=== PATIENT | female | born 2000 | race Caucasian/White ===

== ENCOUNTER 2020-06-08 10:33 | Outpatient (CLI) | payer OTHER, SELFPAY ==
--- NOTE | ~2020-06-08 | US_ITS ---
EXAMINATION: US OB <= 14 weeks fetus DATE: 06/08/2020 11:09 INDICATION: First trimester dating TECHNIQUE: Real-time pelvic transabdominal and transvaginal ultrasound was performed. COMPARISON: None. FINDINGS: The uterus measures 8.5 x 5.3 x 7.1 cm. There is an intrauterine gestational sac. A yolk s ac is identified. heart motion is identified measuring 173 beats per minute (bpm) by M-mode Dop pler. The crown rump length measures 1.9 cm , which correlates with an estimated gestational ag e of 8 weeks and 3 day(s) (+/-) 4 day(s). The left ovary is not visualized however no left adnexal abnormality is seen. The right ovary measure s 4.3 x 2.9 x 1.8 cm. There is normal vascular flow in the right ovary. There is no free fluid in the pelvis. IMPRESSION: 1. Live intrauterine with an estimated gestational age of 8 weeks and 3 day(s) (+/-) 4 day( s) and an estimated delivery date of 01/15/2021. Reviewed, dictated and finalized at location A. E STUDIES FACULTY MEMBER IMPRESSION: 1. Live intrauterine with an estimated gestational age of 8 weeks and 3 day(s) (+/-) 4 day(s) and an estimated delivery date of 01/15/2021.
== END 2020-06-08 10:34 | disposition home or self-care (01) ==
LOC: ANHIMG 10:38
PROVIDERS: Visit Provider Obstetrics & Gynecology
DX: Z34.91 Encounter for supervision of normal pregnancy, unspecified, first trimester (principal); Z3A.08 8 weeks gestation of pregnancy
CPT/HCPCS: 76801

== ENCOUNTER 2020-07-03 09:36 | Outpatient (CLI) | payer OTHER, SELFPAY ==
--- NOTE | ~2020-07-03 | US_ITS ---
EXAMINATION: US OB <=14 wk fetus w TV DATE: 07/03/2020 10:10 INDICATION: First trimester viability assessment TECHNIQUE: Real-time pelvic transabdominal and transvaginal ultrasound was performed. COMPARISON: None. FINDINGS: The uterus measures 11.3 x 7.0 x 9.1 cm. There is an intrauterine gestational sac. h eart motion is identified measuring 167 beats per minute (bpm) by M-mode Doppler. The crown rum p length measures 5.5 cm , which correlates with an estimated gestational age of 12 weeks and 1 day(s ) (+/-) 8 day(s). The right ovary measures 2.7 x 2.5 x 1.7 cm. The left ovary measures 2.7 x 1.5 x 2.7 cm. There is nor mal vascular flow in the ovaries. There is no free fluid in the pelvis. IMPRESSION: 1. Live intrauterine with an estimated gestational age of 12 weeks and 1 day(s) (+/-) 8 day (s) and an estimated delivery date of 01/14/2021. Reviewed, dictated and finalized at location A. LE SORTER IMPRESSION: 1. Live intrauterine with an estimated gestational age of 12 weeks an d 1 day(s) (+/-) 8 day(s) and an estimated delivery date of 01/14/2021.
== END 2020-07-03 09:37 | disposition home or self-care (01) ==
PROVIDERS: PCP Obstetrics & Gynecology; Visit Provider Obstetrics & Gynecology
DX: Z36.89 Encounter for other specified antenatal screening (principal); Z3A.12 12 weeks gestation of pregnancy
CPT/HCPCS: 76801; 76817

== ENCOUNTER 2020-07-24 14:51 | Emergency (ER) | payer OTHER, SELFPAY ==
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
[2020-07-24 17:00] VITALS: BP 129/63; PULSE 83; RESP 18; TEMP 36.3; O2SAT 100
--- NOTE | 2020-07-24 19:08 | PC.NURSE ---
Report to ALL Zambrano and Yo, they have assumed pt care at this time.
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
[2020-07-24] MEDS: RHO(D) IMMUNE GLOBULIN 300 MCG/2 ML SYRINGE IM (21:55)
[2020-07-24 22:10] VITALS: BP 116/60; PULSE 72; RESP 16; O2SAT 98
== END 2020-07-24 22:02 | disposition home or self-care (01) ==
PROVIDERS: Emergency Provider Emergency Medicine; PCP Obstetrics & Gynecology
DX: O9A.212 Injury, poisoning and certain other consequences of external causes complicating pregnancy, second trimester (principal); S39.91XA Unspecified injury of abdomen, initial encounter; Z3A.15 15 weeks gestation of pregnancy; V49.50XA Passenger injured in collision with unspecified motor vehicles in traffic accident, initial encounter
CPT/HCPCS: 36415; 76805; 85460; 85461; 86850; 86900; 86901; 90384; 96372; 99284; J2790

== ENCOUNTER 2020-08-03 10:07 | Outpatient (CLI) | payer OTHER, SELFPAY ==
--- NOTE | ~2020-08-03 | US_ITS ---
EXAMINATION: US OB follow up DATE: 08/03/2020 10:42 INDICATION: Routine care during second trimester . TECHNIQUE: Real-time ultrasound of the pelvis was performed. The interpreting radiologist was not pre sent for the study. COMPARISON: None. FINDINGS: There is a single living fetus in variable presentation, seen in both vertex presentation as well as transverse lie. The placenta is anterior. There is a 2.0 x 0.5 cm anechoic fluid collection along the side of the placenta with thin linear overlying membrane and favor minimal residual chorionic amniotic separation over subchorionic hematoma. heart rate is 147 beats per minute (bpm). The a mniotic fluid volume is subjectively normal. The following biometric data were obtained: BPD: 3.3 cm -> 16 weeks 1 days Head circumference: 12.5 cm -> 16 weeks 2 days Abdominal circumference: 10.6 cm -> 16 weeks 4 days Femur length: 2.0 cm -> 15 weeks 6 days These measurements are concordant. Head circumference to abdominal circumference ratio: 1.18 (normal range 1.06-1.33). Estimated weight: 149 g (+/-) 22 g. or 5 oz. (+/-) 1 oz. IMPRESSION: 1. Single living fetus in variable presentation with heart rate of 147 bpm. 2. 2.0 x 0.5 similar anechoic fluid collection along the side of the anterior placenta with thi n hyperechoic underlying membrane. Location and appearance favors minimal residual chorioamnionic sep aration over subchorionic hematoma. 3. Estimated weight is 28th percentile by Hadlock criteria when 01/15/2021 is used as the estima easton date of delivery (NATE). Please correlate with clinical information or earlier ultrasounds for mos t accurate NATE. Reviewed, dictated and finalized at location B. IMPRESSION: 1. Single living fetus in variable presentation with heart rate of 147 bp m. 2. 2.0 x 0.5 similar anechoic fluid collection along the side of the ante rior placenta with thin hyperechoic underlying membrane. Location and appearanc e favors minimal residual chorioamnionic separation over subchorionic hematoma. 3. Estimated weight is 28th percentile by Hadlock criteria when 01/15/2021 is used as the estimated date of delivery (NATE). Please correlate with clinica l information or earlier ultrasounds for most accurate NATE.
== END 2020-08-03 10:08 | disposition home or self-care (01) ==
LOC: ANHIMG 10:08
PROVIDERS: PCP Obstetrics & Gynecology; Visit Provider Obstetrics & Gynecology
DX: Z34.91 Encounter for supervision of normal pregnancy, unspecified, first trimester (principal)
CPT/HCPCS: 76816

== ENCOUNTER 2020-10-16 12:58 | Outpatient (CLI) | payer OTHER, SELFPAY ==
--- NOTE | ~2020-10-16 | US_ITS ---
EXAMINATION: US OB follow up DATE: 10/16/2020 13:45 INDICATION: Routine care. TECHNIQUE: Real-time ultrasound of the pelvis was performed. COMPARISON: Ultrasound 08/03/2020, 06/08/2020 FINDINGS: There is a single living fetus in transverse lie. The placenta is anterior, 4.7 cm from the cervix. There are venous lakes in the placenta. heart rate is 154 beats per minute (bpm). The amniotic fluid index is 16.5 cm, which is normal. The following biometric data were obtained: Biparietal diameter (BPD): 6.9 cm; head circumference (HC): 25.4 cm; abdominal circumference (AC): 23 .3 cm; femur length (FL): 4.7 cm. These measurements are discordant with FL/BPD < 5th percentile. Estimated weight is 1002 g +/- 150 g, which correlates with 35th percentile when 01/15/21 is use d as estimated date of delivery. As single measurements, these parameters are each equal to the following estimated gestational ages w ith ranges of +/- 2 standard deviations: BPD: 27 weeks 4 days (25 weeks 3 days - 29 weeks 5 days). HC: 27 weeks 4 days (25 weeks 4 days - 29 weeks 5 days). AC: 27 weeks 4 days (25 weeks 3 days - 29 weeks 6 days). FL: 25 weeks 4 days (23 weeks 4 days - 27 weeks 5 days). estimated gestational age based solely on measurements from this exam is 27 weeks 1 days +/- 1 weeks 6 days. IMPRESSION: 1. Single living fetus in transverse lie. 2. Estimated weight is 1002 g +/- 150 g, which correlates with 35th percentile when 01/15/21 is used as estimated date of delivery. This date was set by ultrasound on 06/08/2020. 3. Discordant biometrics with low FL/BPD ratio. Reviewed, dictated and finalized at location A. IMPRESSION: 1. Single living fetus in transverse lie. 2. Estimated weight is 1002 g +/- 150 g, which correlates with 35th perc entile when 01/15/21 is used as estimated date of delivery. This date was set by ultrasound on 06/08/2020. 3. Discordant biometrics with low FL/BPD ratio.
== END 2020-10-16 12:59 | disposition home or self-care (01) ==
PROVIDERS: PCP Obstetrics & Gynecology; Visit Provider Physician Assistant
DX: Z34.93 Encounter for supervision of normal pregnancy, unspecified, third trimester (principal); Z3A.27 27 weeks gestation of pregnancy
CPT/HCPCS: 76816

== ENCOUNTER 2020-11-02 11:05 | Outpatient (RCR) | payer OTHER, SELFPAY | END 2021-01-31 23:59 | disposition home or self-care (01) | LOC: ANHLAB 11:05 | PROVIDERS: PCP Obstetrics & Gynecology; Visit Provider Obstetrics & Gynecology | DX: Z01.83 Encounter for blood typing (principal) | CPT/HCPCS: 36415; 86850; 86900; 86901 ==

== ENCOUNTER 2020-11-06 13:34 | Outpatient (RCR) | payer OTHER, SELFPAY ==
[2020-11-07] MEDS: RHO(D) IMMUNE GLOBULIN 300 MCG/2 ML SYRINGE IM (13:08)
== END 2021-02-04 23:59 | disposition home or self-care (01) ==
LOC: ANHLAB 13:34
PROVIDERS: PCP Obstetrics & Gynecology; Visit Provider Obstetrics & Gynecology
DX: Z01.83 Encounter for blood typing (principal); Z29.13 Encounter for prophylactic Rho(D) immune globulin; O36.0190 Maternal care for anti-D [Rh] antibodies, unspecified trimester, not applicable or unspecified; Z3A.00 Weeks of gestation of pregnancy not specified
CPT/HCPCS: 36415; 86850; 86900; 86901; 90384; 96372; J2790

== ENCOUNTER 2020-12-28 13:05 | Outpatient (CLI) | payer OTHER, SELFPAY ==
--- NOTE | ~2020-12-28 | US_ITS ---
EXAMINATION: US OB follow up DATE: 12/28/2020 16:15 INDICATION: Routine care. TECHNIQUE: Real-time ultrasound of the pelvis was performed. COMPARISON: Ultrasound 10/16/2020, 06/08/2020 FINDINGS: There is a single living fetus in vertex presentation. The placenta is anterior, 8.8 cm from the cer vix. heart rate is 152 beats per minute (bpm). The amniotic fluid index is 25.6, which is high (95th percentile is 24.4 cm). The following biometric data were obtained: Biparietal diameter (BPD): 9.0 cm; head circumference (HC): 34.3 cm; abdominal circumference (AC): 34 .2 cm; femur length (FL): 7.3 cm. These measurements are concordant. Estimated weight is 3351 g +/- 503 g, which correlates with 72nd percentile when 01/15/21 is use d as estimated date of delivery. As single measurements, these parameters are each equal to the following estimated gestational ages: BPD: 36 weeks 4 days. HC: 39 weeks 4 days. AC: 38 weeks 1 days. FL: 37 weeks 3 days. estimated gestational age based solely on measurements from this exam is 38 weeks 0 days +/- 2 weeks 5 days. IMPRESSION: 1. Single living fetus in vertex presentation. 2. Estimated weight is 3351 g +/- 503 g, which correlates with 72nd percentile when 01/15/21 is used as estimated date of delivery. This date was set by ultrasound on 06/08/2020. 3. Polyhydramnios. Reviewed, dictated and finalized at location A. IMPRESSION: 1. Single living fetus in vertex presentation. 2. Estimated weight is 3351 g +/- 503 g, which correlates with 72nd perc entile when 01/15/21 is used as estimated date of delivery. This date was set by ultrasound on 06/08/2020. 3. Polyhydramnios.
== END 2020-12-28 13:06 | disposition home or self-care (01) ==
PROVIDERS: PCP Obstetrics & Gynecology; Visit Provider Obstetrics & Gynecology
DX: O40.3XX0 Polyhydramnios, third trimester, not applicable or unspecified (principal); Z3A.38 38 weeks gestation of pregnancy
CPT/HCPCS: 76816

== ENCOUNTER 2021-01-16 15:58 | Outpatient (RCR) | payer OTHER, SELFPAY ==
--- NOTE | ~2021-01-16 | US_ITS ---
US OB follow up w BPP DATE: 01/16/2021 17:44 INDICATION: Large gestational age, post dates. TECHNIQUE: Real-time imaging and Doppler analysis COMPARISON: 12/28/2020 obstetrical ultrasound follow-up 06/08/2020 obstetrical ultrasound FINDINGS: Live kidd intrauterine gestation, fetus in vertex presentation, longitudinal lie, with heart rate of 152 bpm. Anterior placenta. Amniotic fluid index measures 10.5 cm. (5th percentile RICHIE: 7.1 cm; 95th percentile RICHIE: 21.4 cm). Biparietal diameter 9.03 cm; 36 weeks 4 days Head circumference 35.14 cm; 41 weeks Abdominal circumference 37.34 cm; 41 weeks 2 days Femur length 7.70 cm; 39 weeks 3 days Composite age by Hadlock formula based upon current biometrics would be 39 weeks 4 days +/- 2 weeks 5 days with NATE of 01/19/2021, compared to 01/15/2021 by the fibroid 2020 obstetrical ultrasound exam ination, which would be more accurate. Estimated weight is 4012 +/- 601.8 g. Estimated weight-GP: 78.6% Femur length/BPD 85.37, within normal range of 71.0-87.0 Head circumference/abdominal circumference 0.94, within normal range of 0.89-1.04 Femur length/abdominal circumference 20.64, within normal range of 20.0-24.0 Femur length/head circumference 21.93, within normal range of 20.66, 722.89 BIOPHYSICAL PROFILE reported by medical chief technician: breathin out of 2 movement: 2 out of 2 tone: 2 out of 2 Amniotic fluid pocket: 2 out of 2 Total score: 8 out of 8 IMPRESSION: Normal biophysical profile score of 8 out of 8 Amniotic fluid index: 10.5 cm Estimated weight: 4012 +/- 601.8 g Vertex presentation Reviewed, dictated and finalized at Location A. Reviewed, dictated and finalized at location A.
[2021-01-16 18:37] VITALS: BP 110/60; PULSE 81
== END 2021-01-28 07:51 | disposition home or self-care (01) ==
LOC: ANHOBOP 15:58
PROVIDERS: Visit Provider Obstetrics & Gynecology
DX: O36.63X0 Maternal care for excessive fetal growth, third trimester, not applicable or unspecified (principal); Z3A.40 40 weeks gestation of pregnancy
CPT/HCPCS: 59025; 76816; 76819

== ENCOUNTER 2021-01-17 16:48 | Inpatient (IN) | payer OTHER, SELFPAY ==
[2021-01-17] VITALS (13 sets, daily range): BP systolic 97–137; BP diastolic 60–104; PULSE 78–102; TEMP 36.7–36.9; BMI 35.9
--- NOTE | 2021-01-17 16:48 | LDADM ---
This patient, Albina Valencia, was admitted to Labor/Delivery/Recovery 108 on 01/17/21 at 16:48. Plans for labor, pain management and were discussed with patient. Patient/family oriented to hospital policies and general routines including ID bracelet, bed and alarms, visiting hours, pain management, procedures, bathroom and other care routines, personal items, smoking policy, room service/diet and guest tray routines, infant security routines, and visiting hours. Patient/Family are encouraged to report perceived risks to care and to ask questions if they do not understand what they are told or what they should do. See OBIX for further documentation.
--- NOTE | 2021-01-17 17:09 | PM.IMHP ---
H&P: HPI History of Present Illness Date/Time: 01/17/21 17:09 20 y/o 40w2d who complicated by PCOS, MTHFR, HSV, MDD, RH negative, GBS and tobacco use presents for induction of labor with cervical ripening agents cervidil then cytotec followed by pitocin due to low rodrigues score. US 01/17/21 showed fetus at 4000 g, amniotic fluid normal and BPP 10/10. Baby is still presenting in a high position and may have pelvic inlet abnormality, however trial of labor is warranted. I explained her condition, the procedure and risks involved including maternal or indications for . The risks include bleeding, infection, injury to bladder, bowel, baby, pelvic vessels, DVT, pneumonia, UTI, wound infection as well as risk of shoulder dystocia and post hemorrhage. She understands all of this and consents to agree. Her care began 05/04/20 and has had 20 visits in total. Her was monitored with ultrasound each trimester, RX for MTHFR, TDAP, GTT normal, rhogam given at 28 weeks, GBS positive. Chief Complaint: elective induction of labor in term Review of Systems Review of Systems: All systems reviewed & are unremarkable except as noted in HPI and below Constitutional: Constitutional: Reports no additional constitutional complaints Eyes: Eyes: Reports no additional eye complaints ENT: Reports system reviewed and no additional complaints, except as documented Cardiovascular: Cardiovascular: Reports no additional cardiovascular complaints Respiratory: Respiratory: Reports no additional respiratory complaints Gastrointestinal: Gastrointestinal: Reports no additional gastrointestinal complaints Genitourinary: Genitourinary: Reports no additional female genitourinary complaints Musculoskeletal: Musculoskeletal: Reports no additional musculoskeletal complaints Integumentary/Breasts: Skin/Breast: Reports system reviewed and no additional complaints, except as docu Neurologic: Reports system reviewed and no additional complaints, except as documented Psychiatric: Psychiatric: Reports no additional psychiatric complaints Endocrine: Endocrine: Reports no additional endocrine complaints Hematologic/Lymphatic: Hematologic/Lymphatic: Reports no additional hematologic/lymphatic complaints Allergic/Immunologic: Allergic/Immunologic: Reports no additional allergic/immunologic complaints [facility] Past Medical History Medical History (Updated 01/17/21 @ 17:34 by Ron De Los Santos MD) Bipolar 1 disorder Candidiasis Chlamydia Chronic idiopathic constipation Compound heterozygous MTHFR 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 Other Breast cancer Heart disease Social History Social History (Updated 01/17/21 @ 17:28 by Ron De Los Santos MD) Smoking packs per day: 0.25 Smoking cigarettes per day: 5.0 Years smoked: 4 Smoking pack-years: 1.00 Smoking status: Current every day smoker Tobacco type: cigarettes Second hand tobacco smoke exposure: Yes Alcohol intake: never Substance use: current Substance use type: marijuana Living arrangements: with family Occupation/Education: unemployed Gender identity (if verbalized by the patient): Female Sexual Orientation (if Verbalized by the Patient): Straight or Heterosexual Spiritual care concerns: No Agree to blood products: Yes Meds Home Medications and Allergies Home Medications Medi
--- NOTE | 2021-01-17 17:19 | P.HPUP_ITS ---
History and Physical Update Update Date/Time: 01/17/21 17:19 20 y/o 40w2d who complicated by PCOS, MTHFR, HSV, MDD, RH negative, GBS and tobacco use presents for induction of labor with cervical ripening agents cervidil then cytotec followed by pitocin due to low rodrigues score. US 01/17/21 showed fetus at 4000 g, amniotic fluid normal and BPP 10/10. Baby is still presenting in a high position and may have pelvic inlet abnormality, however trial of labor is warranted. I explained her condition, the procedure and risks involved including maternal or indications for c- section. The risks include bleeding, infection, injury to bladder, bowel, baby, pelvic vessels, DVT, pneumonia, UTI, wound infection as well as risk of shoulder dystocia and post hemorrhage. She understands all of this and consents to agree. Her care began 05/04/20 and has had 20 visits in total. Her was monitored with ultrasound each trimester, RX for MTHFR, TDAP, GTT normal, rhogam given at 28 weeks, GBS positive. History and Physical has been reviewed, including an updated exam of the patient. There are NO changes in the patient's condition. Risks, benefits, and alternatives have been discussed and questions answered. Patient agrees to proceed with procedure.
[2021-01-17] MEDS: DINOPROSTONE 10 MG VAG INSERT VAGINAL (17:48)
[2021-01-17 17:50] LABS: Basophils Percent Auto 0.2 % (0.2-1.2); Eosinophils Absolute Auto 0.1 K/mm3 (0-0.3); Eosinophils Percent Auto 1.2 % (0-4.4); Hematocrit 34.4 % (37.0-47.0); Hemoglobin 11.9 g/dL (12.0-15.0); Immature Granulocyte Absolute 0.06 K/mm3 (0.00-0.031); Immature Granulocyte Percent A 0.6 % (0-0.5); Lymphocytes Absolute Auto 2.75 K/mm3 (0.9-3.2); Lymphocytes Percent Auto 26.9 % (18.3-44.2); Mean Corpuscular HGB Conc 34.6 g/dl (32-36); Mean Corpuscular Hemoglobin 32.9 pg (26-34); Mean Platelet Volume 9.2 fl (7.4-10.4); Monocytes Absolute Auto 0.5 K/mm3 (0.1-0.6); Monocytes Percent Auto 4.7 % (2.6-8.5); Neutrophils Absolute Auto 6.8 K/mm3 (1.3-6.7); Neutrophils Percent Auto 66.4 % (45.5-73.1); Platelet Count Result 276 k/mm3 (150-375); Red Blood Count 3.62 M/mm3 (4.2-5.4); Red Cell Distribution Width 12.7 % (11.5-14.5); White Blood Count 10.2 K/mm3 (4.5-10.0)
[2021-01-17] MEDS: fentaNYL CITRATE INJ (*CRX) 100 MCG/2 ML VIAL 50 MCG IV PUSH (21:58)
[2021-01-18] VITALS (229 sets, daily range): BP systolic 65–139; BP diastolic 38–107; PULSE 56–164; RESP 14–18; TEMP 36.3–37.1; O2SAT 96–100
[2021-01-18] MEDS: ONDANSETRON INJ 4 MG/2 ML VIAL IV PUSH (01:26)
[2021-01-18] MEDS: fentaNYL CITRATE INJ (*CRX) 100 MCG/2 ML VIAL IV PUSH (01:27)
[2021-01-18] MEDS: AMPICILLIN 2 GM/NS 100 ML 2 GM/100 ML BAG IVPB (01:29)
[2021-01-18] MEDS: LACTATED RINGERS 1,000 ML 125 ML IV CONT ×3 (01:29→09:14)
--- NOTE | 2021-01-18 03:37 | WPDANESEPPF ---
Anes - Initial Pre Proc Eval Procedure: labor epidural Date/Time: 01/18/21 03:37 Surgeon: Ron De Los Santos MD Pre Op Diagnosis: labor pain Pre Op Diagnosis: IOL Patient Data Age: 20 Gender: F Height: 1.63 m Weight: 95 kg Last Vital Signs Temp 37.1 C 01/18/21 01:19 Pulse 93 01/18/21 03:36 BP 125/73 01/18/21 03:36 Pulse Ox 100 01/18/21 03:32 Allergies Allergy/AdvReac Type Severity Reaction Status Date / Time sulfamethoxazole Allergy Rash Verified 07/24/20 17:05 [From Bactrim] trimethoprim [From Bactrim] Allergy Rash Verified 07/24/20 17:05 Home Medications Medication Instructions Recorded Confirmed Type PNV cmb#95-ferrous fumarate-FA 1 tablet PO DAILY 01/16/21 01/17/21 History [] acyclovir 800 mg PO DAILY 01/17/21 01/17/21 History aspirin 81 mg PO DAILY 01/17/21 01/17/21 History bupropion HCl 150 mg PO DAILY 01/17/21 01/17/21 History folic acid 1 mg PO DAILY 01/17/21 01/17/21 History metformin 250 mg PO DAILY 01/17/21 01/17/21 History progesterone micronized 200 mg PO DAILY 01/17/21 01/17/21 History Laboratory Tests 01/17/21 01/17/21 01/17/21 17:25 17:25 17:25 WBC 10.2 K/mm3 H K/mm3 (4.5-10.0) RBC 3.62 M/mm3 L M/mm3 (4.2-5.4) Hgb 11.9 g/dL L g/dL (12.0-15.0) Hct 34.4 % L % (37.0-47.0) MCV 95.0 fl fl (80-100) MCH 32.9 pg pg (26-34) MCHC 34.6 g/dl g/dl (32-36) RDW 12.7 % % (11.5-14.5) Plt Count 276 k/mm3 k/mm3 (150-375) MPV 9.2 fl fl (7.4-10.4) Immature Gran % (Auto) 0.6 % H % (0-0.5) Neut % (Auto) 66.4 % % (45.5-73.1) Lymph % (Auto) 26.9 % % (18.3-44.2) [place] % (Auto) 4.7 % % (2.6-8.5) Eos % (Auto) 1.2 % % (0-4.4) Baso % (Auto) 0.2 % % (0.2-1.2) Lymph # (Auto) 2.75 K/mm3 K/mm3 (0.9-3.2) [place] # (Auto) 0.5 K/mm3 K/mm3 (0.1-0.6) Eos # (Auto) 0.1 K/mm3 K/mm3 (0-0.3) Baso # (Auto) 0.0 K/mm3 K/mm3 (0.0-0.1) Abs Immat Gran (auto) 0.06 K/mm3 H K/mm3 (0.00-0.031) Absolute Neuts (auto) 6.8 K/mm3 H K/mm3 (1.3-6.7) Absolute Nucleated RBC 0.0 K/mm3 K/mm3 (0.0-0.012) Nucleated RBC % 0.0 % % (0.0-0.2) RPR Pending Blood Type AB Negative Antibody Screen Negative Patient hx anesthesia problems: none Family hx anesthesia problems: none Results Review: All pre-operative results and documents have been reviewed as part of the pre-operative evaluation. 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 Other Breast cancer Heart disease Social History Social History (Updated 01/17/21 @ 17:28 by Ron De Los Santos MD) Smoking packs per day: 0.25 Smoking cigarettes per day: 5.0 Years smoked: 4 Smoking pack-years: 1.00 Smoking status: Current every day smoker Tobacco type: cigarettes Second hand tobacco smoke exposure: Yes Alcohol intake: never Substance use: current Substance use type: marijuana Living arrangements: with family Occupation/Education: unemployed Gender identity (if verbalized by the patient): Female Sexual [employer]
[2021-01-18 04:48] LABS: Amphetamine Screen Urine Negative (Negative); Barbiturate Screen Urine Negative (Negative); Benzodiazepines Screen Urine Negative (Negative); Cannabinoid Screen Urine Positive (Negative); Cocaine Screen Urine Negative (Negative); Methadone Screen Urine Negative (Negative); Opiate Screen Urine Negative (Negative); Phencyclidine Screen Urine Negative (Negative)
[2021-01-18] MEDS: OXYTOCIN 30 UNITS/NS 500 ML 30 UNITS/500 ML BAG 6 UNITS IV CONT (05:16)
[2021-01-18] MEDS: AMPICILLIN 1 GM/NS 50 ML 1 GM/50 ML BAG IVPB ×2 (05:17→09:14)
--- NOTE | 2021-01-18 07:58 | PM.OBPNLAB ---
Pain Control Date/time seen: 01/18/21 03:58 Pain control: tolerating well Pelvic Exam Dilation (cm): 3 Effacement (%): 75 station: -3 Amniotic membrane status: Intact Contractions Monitor mode: External Contraction frequency: 2 Contraction duration: 45 Contraction pattern: Regular Contraction phase: Contraction Contraction intensity: Strong/Firm Status status: Category l Assessment and Plan Assessment: active labor and induction ongoing Plan: continuous present management Comments: epidural
--- NOTE | 2021-01-18 08:04 | PM.OBPNLAB ---
Pain Control Date/time seen: 01/18/21 08:04 Pain control: tolerating well and epidural Comments: SROM clear 0650 Pelvic Exam Dilation (cm): 5 Effacement (%): 75 station: -3 Amniotic membrane status: Ruptured (SROM clear ) Contractions Monitor mode: Internal (IUPC) Contraction frequency: 2 Contraction duration: 45 Contraction pattern: Regular Contraction phase: Contraction Contraction intensity: Strong/Firm Intrauterine tone measurement: 10 Status status: Category l Assessment and Plan Pitocin rate (mU/min): 3 Assessment: active labor and induction ongoing Plan: continuous present management Comments: monitor in active phase await completion of stage 1
--- NOTE | 2021-01-18 10:46 | P.PNOB_ITS ---
Pain Control Date/time seen: 01/18/21 10:46 Pain control: tolerating well and epidural Comments: Inadequate contractions Pelvic Exam Dilation (cm): 5 Effacement (%): 75 station: -3 Amniotic membrane status: Ruptured (SROM clear ) Contractions Monitor mode: Internal (IUPC) Contraction frequency: 2 Contraction pattern: Regular Contraction phase: Contraction Contraction intensity: Strong/Firm Intrauterine tone measurement: 10 Status status: Category l Assessment and Plan Pitocin rate (mU/min): 6 Assessment: active labor Plan: continuous present management and begin patient augmentation (Adjust P itocin for adequate contractions)
--- NOTE | 2021-01-18 12:04 | PM.OBPNLAB ---
Pain Control Date/time seen: 01/18/21 12:04 Pain control: tolerating well and epidural Comments: Contractions every 2 minutes. On Pitocin 6 milliunits per minute. Pelvic Exam Dilation (cm): 5 Effacement (%): 75 station: -3 Amniotic membrane status: Ruptured (SROM clear ) Comments: Caput formation on the vertex. consistent with pelvic inlet disorder. Contractions Monitor mode: Internal (IUPC) Contraction frequency: 2 Contraction duration: 45 Contraction pattern: Regular Contraction phase: Contraction Contraction intensity: Strong/Firm Intrauterine tone measurement: 10 Status status: Category l Assessment and Plan Pitocin rate (mU/min): 6 Assessment: active labor and other (Arrest of dilation. Likely due to pelvic inlet disorder (CPD). ) Plan: continuous present management Comments: Recheck cervix exam 1 hour, if no cervical change then we will perform for delivery.
--- NOTE | 2021-01-18 13:07 | PM.OBPNLAB ---
Pain Control Date/time seen: 01/18/21 13:07 Pain control: tolerating well and epidural Comments: No further cervical change and no further descent. Pelvic Exam Dilation (cm): 5 Effacement (%): 75 station: -3 Amniotic membrane status: Ruptured (SROM clear ) Contractions Monitor mode: Internal (IUPC) Contraction frequency: 2 Contraction duration: 45 Contraction pattern: Regular Contraction phase: Contraction Contraction intensity: Strong/Firm Intrauterine tone measurement: 10 Status status: Category l Assessment and Plan Pitocin rate (mU/min): 6 Assessment: active labor and other (Arrest of dilation arrest of descend secondary to cephalopelvic disproportion) Plan:
--- NOTE | 2021-01-18 13:10 | PM.OBPRVD ---
OB - Delivery Note Procedure Delivery date: 01/18/21 Procedure: Primary low-transverse section with delivery of viable female and placenta events: Labor Induction Intrapartal events: Ceph-Pelvic Disproportion Induction method: per pitocin protocol and per cervidil protocol Delivery augmentation: rupture of membranes (Spontaneous rupture membranes at 6:50 a.m.) and pitocin Delivery monitor: internal FHT Route of delivery: (Primary low-transverse section with delivery of viable female and placenta) Episiotomy description: None Laceration Description: None Specimen: Yes (Placenta cord blood and cord blood gases) Quantitative Blood Loss (ml): 610 Anesthesia type: Epidural Disposition: floor Complications: None Narrative: See detailed operative note Baby Date of : 01/18/21 Time of : 14:01 Weeks of gestation at delivery: 40 gender: Female (Jessica Da Silva) Weight (pounds): 7 Weight (ounces): 11 presentation: vertex Placenta delivery description: Manual Removal cord vessel description: 3 Vessels and Clamped/Cut score one minute: 9 score five minutes: 9 Narrative: See full operative report
--- NOTE | 2021-01-18 13:13 | W.PM.PROC2 ---
Procedure Note - Detailed Date of Procedure 01/18/21 Pre-op Diagnosis Term : Code(s): Z34.90 - Encounter for supervision of normal , unspecified, unspecified trimester Status: Acute cephalopelvic disproportion Arrest of labor Elective induction of labor planned: Status: Acute GBS (group B Streptococcus carrier), +RV culture, currently : Code(s): O99.820 - Streptococcus B carrier state complicating Status: Acute HSV (herpes simplex virus) anogenital infection: Code(s): A60.9 - Anogenital herpesviral infection, unspecified Status: Acute Rh negative state in antepartum period: Code(s): O26.899 - Other specified related conditions, unspecified trimester; Z67.91 - Unspecified blood type, Rh negative Status: Acute Compound heterozygous MTHFR mutation C677T/[id number]: Code(s): Z15.89 - Genetic susceptibility to other disease Status: Acute MDD (major depressive disorder): Code(s): F32.9 - Major depressive disorder, single episode, unspecified Status: Acute Bipolar 1 disorder: Code(s): F31.9 - Bipolar disorder, unspecified Status: Acute Post-op Diagnosis same (Term delivered with viable female and placenta: Code(s): Z34.90 - Encounter for supervision of normal , unspecified, unspecified trimester Status: Acute cephalopelvic disproportion Arrest of labor Elective induction of labor planned: Status: Acute GBS (g) Procedure Performed Primary low-transverse section with delivery of viable female infant and placenta Surgeon Ron De Los Santos MD Perch Mender Felicia surgical oncologist and [employer] student Anesthesia epidural Indications Arrest of labor secondary to cephalopelvic disproportion Findings Viable female and placenta. Time of delivery-1401 score-9 at 1 minute 9 at 5 minutes Weight-7 lb 11 oz Estimated blood loss-610 mL IV fluid-1800 mL 2 g of Ancef given VTE prevention-SCD Cooper output 150 CC uterus tubes and ovaries normal Mom and baby stable and taken to recovery Description of Procedure Informed consent obtained. Patient understands condition procedure and risks and agrees to proceed. Patient taken to the operating room with a working epidural which was dosed in the labor room 108. And a Cooper catheter was in place. The abdomen was prepped and then draped in the usual sterile fashion and a time-out was performed. A Pfannenstiel incision was made to the skin in the abdomen was opened in layers hemostasis obtained by cauterization. Fascia was entered with electrocautery extended bilaterally undermined inferior and superior the rectus muscles were the midline and the peritoneum was entered with electrocautery. A transverse incision was made to the uterus and extended bilaterally digitally. The vertex was then delivered via the abdominal incision with caput noticed on the left anterior. The nose and throat were bulb suction the had spontaneous respirations and cry born at 1401 the cord was clamped and cut and the head was handed to the nursery nurse in attendance scores given 9 and 9 weight 7 lb 11 oz 20 in long taken to the nursery in stable condition. Cord gas obtained cord blood obtained placenta was then delivered intact with a three-vessel cord in the uterus contracted well Pitocin given intravenously as well as the 10 units into the myometrium. Blood clots membranes removed from the intrauterine cavity. The uterus was externalized and then repaired in 2 layers with 0 Vicryl in a running interlocking fashion the 2nd being an imbricating stitch with excellent approximation. Blood clots removed from the cul-de-sac both lateral margins after irrigation. The uterus was returned to the peritoneal cavity the sponge needle instrument counts were correct. The anterior peritoneum and rectus muscles re
--- NOTE | 2021-01-18 13:23 | WPDANESEFPP ---
Anes - Eval Final PreProcedure Day of Procedure 01/18/21 13:23 Patient weight: obese Heart: regular rate and rhythm Lungs: clear to auscultation Airway: Mallampati scale class II Neurological: alert and oriented ASA classification: III Emergent: no Anesthetic plan: proceed Anesthesia type and monitoring: regional epidural and standard monitoring Other findings: existing epid for c/s Results Review: All pre-operative results and documents have been reviewed as part of the pre-operative evaluation. Informed Consent: The patient's anesthetic plan and its attendant risks and benefits were discussed with the patient/family/POA. Questions were solicited and answers provided to the satisfaction of the patient/family/POA.
[2021-01-18 13:53] LABS: Rapid Plasma Reagin Non-Reactive (NonReactive)
[2021-01-18] MEDS: OXYTOCIN 10 UNITS/ML VIAL (14:02)
[2021-01-18] MEDS: KETOROLAC 30 MG/ML VIAL (*BKC) IV PUSH (14:10)
--- NOTE | 2021-01-18 19:11 | PC.NURSE ---
1720 Pt admitted to room 280 per stretcher from labor and delivery after delivery of viable female infant at [address] De Los Santos. Mother is a and is choosing to breast feed. FOB present. Oriented to room, staffing and procedures. Pt's VSS and assessment WNL.
--- NOTE | 2021-01-18 19:30 | PC.NURSE ---
174 Breast feeding note; baby awake and eager; she was able to latch easily and maintain, but did require relatch several times. Mother reports hx of PCOS, but does want to try to breast feed. Nurse encouraged her to do so. Reviewed positioning alignment, and use of c-hold, and nose to nipple latch on technique in cross-cradle position. FOB engaged in teaching. Both parents attentive and voiced understanding. Mother's breasts wide set, smaller. Baby appears to be tongue tied.
[2021-01-18] MEDS: DEXTROSE 5%/0.45% SOD CHL 1,000 ML 125 ML IV CONT (21:19)
--- NOTE | 2021-01-19 02:29 | PC.NURSE ---
Patient was given post bag of Oxytocin 30 units/Ns 500ml @ 125 per hour, administering RN did not scan the medication, bag was infused and completed at 2118 on 01/18/21.
[2021-01-19 04:20] VITALS: BP 118/68; PULSE 78; RESP 16; TEMP 36.6; O2SAT 100
[2021-01-19] MEDS: HYDROcodone/acetaminophen (*CRX) 5-325 MG TABLET 1 TAB PO ×4 (04:25→23:25)
[2021-01-19] MEDS: IBUPROFEN 600 MG TABLET PO ×4 (04:25→23:25)
[2021-01-19 05:24] LABS: Basophils Absolute Auto 0.1 K/mm3 (0.0-0.1); Basophils Percent Auto 0.3 % (0.2-1.2); Eosinophils Absolute Auto 0.1 K/mm3 (0-0.3); Eosinophils Percent Auto 0.5 % (0-4.4); Hematocrit 24.9 % (37.0-47.0); Hemoglobin 8.2 g/dL (12.0-15.0); Immature Granulocyte Absolute 0.13 K/mm3 (0.00-0.031); Immature Granulocyte Percent A 0.8 % (0-0.5); Lymphocytes Absolute Auto 3.11 K/mm3 (0.9-3.2); Lymphocytes Percent Auto 18.2 % (18.3-44.2); Mean Corpuscular HGB Conc 32.9 g/dl (32-36); Mean Corpuscular Hemoglobin 32.4 pg (26-34); Mean Corpuscular Volume 98.4 fl (80-100); Mean Platelet Volume 9.3 fl (7.4-10.4); Monocytes Absolute Auto 1.1 K/mm3 (0.1-0.6); Monocytes Percent Auto 6.3 % (2.6-8.5); Neutrophils Absolute Auto 12.7 K/mm3 (1.3-6.7); Neutrophils Percent Auto 73.9 % (45.5-73.1); Platelet Count Result 192 k/mm3 (150-375); Red Blood Count 2.53 M/mm3 (4.2-5.4); Red Cell Distribution Width 12.7 % (11.5-14.5); White Blood Count 17.1 K/mm3 (4.5-10.0)
[2021-01-19] MEDS: DOCUSATE SODIUM 100 MG CAPSULE PO ×2 (07:04→17:12)
[2021-01-19] MEDS: POLYSACCHARIDE IRON COMPLEX 150 MG CAPSULE PO ×2 (07:04→17:12)
[2021-01-19] MEDS: MULTIVIT/MIN/PREN/FOL AC/IRON TABLET 1 TAB PO (07:04)
[2021-01-19] MEDS: RHO(D) IMMUNE GLOBULIN 300 MCG/2 ML SYRINGE IM (08:12)
--- NOTE | 2021-01-19 08:20 | PM.OBPNVD ---
OB - PN: Subj Subjective Date/time seen: 01/19/21 08:20 Patient comments: no complaints, pain well controlled, incisional pain, tolerating diet and flatus present baby status: doing well and nursing well [place] feeding status: exclusively breast feeding OB - PN: Obj Data Labs CBC & Chem 7: 01/19/21 04:39 Labs: Laboratory Results - last 24 hr 01/17/21 01/19/21 01/19/21 17:25 04:38 04:39 WBC 17.1 H RBC 2.53 L Hgb 8.2 L D Hct 24.9 L MCV 98.4 MCH 32.4 MCHC 32.9 RDW 12.7 Plt Count 192 MPV 9.3 Immature Gran % (Auto) 0.8 H Neut % (Auto) 73.9 H Lymph % (Auto) 18.2 L [place] % (Auto) 6.3 Eos % (Auto) 0.5 Baso % (Auto) 0.3 Lymph # (Auto) 3.11 [place] # (Auto) 1.1 H Eos # (Auto) 0.1 Baso # (Auto) 0.1 Abs Immat Gran (auto) 0.13 H Absolute Neuts (auto) 12.7 H Absolute Nucleated RBC 0.0 Nucleated RBC % 0.0 RPR Non-reactive Blood Type AB Negative Antibody Screen TNP Screen Negative Baby's Blood Type A pos Baby's ANGIE Negative Doses of RhIg Required 1 OB - PN A/P Assessment and Plan (1) Term delivered: Code(s): O80 - Encounter for full-term uncomplicated delivery Status: Acute (2) Cephalopelvic disproportion: Code(s): O33.9 - Maternal care for disproportion, unspecified Status: Acute (3) Failure to progress in labor, delivered, current hospitalization: Code(s): O62.2 - Other uterine inertia Status: Acute (4) Rh negative state in antepartum period: Code(s): O26.899 - Other specified related conditions, unspecified trimester; Z67.91 - Unspecified blood type, Rh negative Status: Acute (5) HSV (herpes simplex virus) anogenital infection: Code(s): A60.9 - Anogenital herpesviral infection, unspecified Status: Acute (6) MDD (major depressive disorder): Code(s): F32.9 - Major depressive disorder, single episode, unspecified Status: Acute (7) GBS (group B Streptococcus carrier), +RV culture, currently : Code(s): O99.820 - Streptococcus B carrier state complicating Status: Acute (8) Compound heterozygous MTHFR mutation C677T/[id number]: Code(s): Z15.89 - Genetic susceptibility to other disease Status: Acute (9) Anemia: Code(s): D64.9 - Anemia, unspecified Status: Acute (10) Delivery by section: Status: Acute Plan day: 1 Plan: routine care, discharge home and follow up 6 weeks Time Spent With Patient Time: Total time spent is greater than 50% in coordination of care (as documented) at patient's floor/unit and/or counseling patient: Time with patient: less than 15 minutes Review of Systems Review of Systems: All systems reviewed & are unremarkable except as noted in HPI and below Exam Const: General: cooperative, healthy appearing, comfortable, no acute distress, well developed, alert, awake and Physically active HENMT: Head: normal to inspection Eyes: General: appearance normal, both eyes and all related structures Neck: Neck: normal visual inspection and full ROM Chest: Chest palpation & inspection: normal inspection of the chest Resp: Effort & Inspection: normal respiratory effort Auscultation: clear to auscultation bilaterally Cardio: Rate: regular rate Rhythm: regular rhythm GI: Inspection: normal to inspection and incision (Dressing dry and intact) GI Palp: Yes Soft to palpation Auscultation: normal bowel sounds : External Female Exam: normal external appearance Bimanual exam- vagina & uterus: non-tender Back/Spine/Pelvis: Back: no CVA tenderness Skin: General skin exam: normal color Neuro: General: patient oriented x3, gait normal, tone normal, moves all extremities, no meningeal signs and no focal motor deficits Extrem: General: normal to inspection and full ROM Psych: Ap
[2021-01-19 08:30] VITALS: BP 99/55; PULSE 78; RESP 16; TEMP 36.6; O2SAT 99
[2021-01-19] MEDS: buPROPion HCL SR (12 HR) 150 MG TAB PO (10:21)
[2021-01-19] MEDS: ACYCLOVIR 400 MG TABLET 800 MG PO (10:22)
--- NOTE | 2021-01-19 11:09 | WPDANLDPN2 ---
Anes-Prog Note L&D Date/Time: 01/19/21 11:09 Comfortable throughout: section Neuraxial method: spinal Epidural/Spinal procedure site: clean & non-tender Neuro status: Neuro function grossly intact. Cardiovascular status: normal Respiratory status: normal Airway patency: baseline Mental status: baseline Post-Op hydration status: normal Vital Signs: Last Vital Signs Temp 36.6 C 01/19/21 08:30 Pulse 78 01/19/21 08:30 Resp 16 01/19/21 08:30 BP 99/55 L 01/19/21 08:30 Pulse Ox 99 01/19/21 08:30 Pain score (VAS): 05/06 I/O: Intake & Output 01/18/21 01/19/21 01/19/21 23:59 07:59 15:59 Intake Total 600 700 Output Total 490 700 Balance 110 0 Post-procedural complaints: none Patient feedback: Patient satisfied with anesthetic care.
--- NOTE | 2021-01-19 11:09 | WPDANLDNPN2 ---
Anes-Prog Note L&D-Neuraxial Date/Time: 01/19/21 11:09 Neuraxial medications: intrathecal PF morphine Opiod-related complaints: none Patient feedback: Patient satisfied with post-operative pain management.
--- NOTE | 2021-01-19 11:26 | PCCCNOTE ---
Care Coordination met with pt. and FOB this morning to discuss discharge planning. Pt.'s current D/C plan is to return home with FOB. Pt. states that she has everything needed to safely bring baby home. Pt. confirms they have a car seat for baby. Pt. is attempting to breast feed baby and also using formula when needed. Pt. has started WIC application. Pt. has Dr. Monae for baby's manager ccu. Pt. and FOB deny any concerns about bringing baby home. Pt. and baby had positive urine drug screens for Marijuana. Pt. states she used Marijuana throughout her to assist with her lack of appetite. Pt. and FOB aware that CC will report the drug use to [facility]. CC completed an online report, pending intake reference number [id number]. No further need for CC services at this time.
[2021-01-19 13:00] VITALS: BP 116/62; PULSE 77; RESP 18; TEMP 36.6; O2SAT 100
[2021-01-19] MEDS: SIMETHICONE 80 MG TAB.CHEW PO (17:12)
[2021-01-19 19:00] VITALS: BP 117/61; PULSE 85; RESP 16; TEMP 36.5
[2021-01-20] MEDS: SIMETHICONE 80 MG TAB.CHEW PO ×2 (02:10→08:11)
[2021-01-20] MEDS: IBUPROFEN 600 MG TABLET PO ×3 (07:58→20:20)
[2021-01-20] MEDS: HYDROcodone/acetaminophen (*CRX) 5-325 MG TABLET 1 TAB PO ×4 (07:58→20:22)
[2021-01-20] MEDS: DOCUSATE SODIUM 100 MG CAPSULE PO ×2 (07:59→15:57)
[2021-01-20 08:00] VITALS: BP 124/74; PULSE 84; RESP 18; TEMP 36.6; O2SAT 97
[2021-01-20] MEDS: POLYSACCHARIDE IRON COMPLEX 150 MG CAPSULE PO ×2 (08:00→15:57)
[2021-01-20] MEDS: buPROPion HCL SR (12 HR) 150 MG TAB PO (08:00)
[2021-01-20] MEDS: MULTIVIT/MIN/PREN/FOL AC/IRON TABLET 1 TAB PO (08:00)
[2021-01-20] MEDS: ACYCLOVIR 400 MG TABLET 800 MG PO (08:00)
--- NOTE | 2021-01-20 08:24 | PM.OBDSVD ---
DS: Admitting Diagnosis Discharge Date 01/20/21 Admitting Diagnosis 1) Term : Code(s): Z34.90 - Encounter for supervision of normal , unspecified, unspecified trimester Status: Acute (2) Elective induction of labor planned: Status: Acute (3) GBS (group B Streptococcus carrier), +RV culture, currently : Code(s): O99.820 - Streptococcus B carrier state complicating Status: Acute (4) HSV (herpes simplex virus) anogenital infection: Code(s): A60.9 - Anogenital herpesviral infection, unspecified Status: Acute (5) Rh negative state in antepartum period: Code(s): O26.899 - Other specified related conditions, unspecified trimester; Z67.91 - Unspecified blood type, Rh negative Status: Acute (6) Compound heterozygous MTHFR mutation C677T/S9529T: Code(s): Z15.89 - Genetic susceptibility to other disease Status: Acute (7) MDD (major depressive disorder): Code(s): F32.9 - Major depressive disorder, single episode, unspecified Status: Acute (8) Bipolar 1 disorder: Code(s): F31.9 - Bipolar disorder, unspecified Status: Acute DS: Discharge Diagnosis Discharge Diagnosis (1) Term delivered: Code(s): O80 - Encounter for full-term uncomplicated delivery Status: Acute (2) Failure to progress in labor, delivered, current hospitalization: Code(s): O62.2 - Other uterine inertia Status: Acute (3) Cephalopelvic disproportion: Code(s): O33.9 - Maternal care for disproportion, unspecified Status: Acute (4) Delivery by section: Status: Acute (5) Anemia: Code(s): D64.9 - Anemia, unspecified Status: Acute (6) Bipolar 1 disorder: Code(s): F31.9 - Bipolar disorder, unspecified Status: Acute (7) Rh negative state in antepartum period: Code(s): O26.899 - Other specified related conditions, unspecified trimester; Z67.91 - Unspecified blood type, Rh negative Status: Acute (8) HSV (herpes simplex virus) anogenital infection: Code(s): A60.9 - Anogenital herpesviral infection, unspecified Status: Acute (9) MDD (major depressive disorder): Code(s): F32.9 - Major depressive disorder, single episode, unspecified Status: Acute (10) GBS (group B Streptococcus carrier), +RV culture, currently : Code(s): O99.820 - Streptococcus B carrier state complicating Status: Acute (11) Compound heterozygous MTHFR mutation C677T/[id number]: Code(s): Z15.89 - Genetic susceptibility to other disease Status: Acute OB - DS: Summary Hospital Course Time spent discussing smoking cessation with patient: 3 to 10 minutes OB Procedures : Ultrasound OB Procedures Intrapartum: low cervical, transverse OB Procedures: : None Peripartum Data Delivery Method: Section Laceration Description: None Episiotomy description: None Procedures: Procedures Operation Date: 01/18/21 13:30 <No data on this case meets the specified criteria> complications: none [place] 1: Gender: Female (YOLIS) Disposition of : home Status at Discharge Cognitive/behavioral status at discharge: normal Functional status at discharge: independent ambulation Overall status at discharge: patient is back to baseline Time Spent with Patient Time attestation: Total time spent providing and/or coordinating discharge services: Time spent: Less than 30 minutes Exam Const: General: cooperative, healthy appearing, comfortable, no acute distress, well developed, alert, awake and Physically active Nutritional Appearance: average body habitus and obese Orientation/consciousness: patient oriented x3 Limitations: no limitations HENMT: Head: normal to inspection Eyes: General: appearance normal, both eyes and all related structures Neck
--- NOTE | 2021-01-20 13:00 | PC.NURSE ---
Patient and FOB viewed the discharge video Mother & Baby Care, The First Two Weeks . Patient was given the opportunity and encouraged to ask questions. Patient verbalized understanding of information shared and has been given the mother/baby guide for home reference.
[2021-01-20 18:30] VITALS: BP 109/68; PULSE 86; RESP 16; TEMP 36.7; O2SAT 100
--- NOTE | 2021-01-20 21:02 | PC.NURSE ---
Breast pump provided due to maternal request and nipple soreness. Instructions given on breast pump care and usage, pumping schedule, nipple care, and collection and storage of breast milk. Encouraged [id number], breast massage and manual expression to stimulate supply. Pumping log provided and reviewed. Assessed patient for correct flange size, placement and draw. Hydrogels and lanolin in use for sore nipples. Instructed to call out when pt would like to breastfeed the next time so latch can be assessed. Patient verbalizes and demonstrates understanding of instructions.
[2021-01-21] MEDS: IBUPROFEN 600 MG TABLET PO ×2 (03:59→10:20)
[2021-01-21] MEDS: HYDROcodone/acetaminophen (*CRX) 5-325 MG TABLET 1 TAB PO ×2 (03:59→10:20)
--- NOTE | 2021-01-21 07:20 | PCWOUND ---
WOCN NOTE received automative fax for pressure ulcer present. Spoke with nurses, documentation was a mistake. RN who charted will fix once she returns to work.
[2021-01-21] MEDS: buPROPion HCL SR (12 HR) 150 MG TAB PO (07:25)
[2021-01-21] MEDS: POLYSACCHARIDE IRON COMPLEX 150 MG CAPSULE PO (07:25)
[2021-01-21] MEDS: ACYCLOVIR 400 MG TABLET 800 MG PO (07:26)
[2021-01-21] MEDS: MULTIVIT/MIN/PREN/FOL AC/IRON TABLET 1 TAB PO (07:26)
[2021-01-21] MEDS: SIMETHICONE 80 MG TAB.CHEW PO ×2 (07:26→10:20)
[2021-01-21] MEDS: DOCUSATE SODIUM 100 MG CAPSULE PO (07:27)
[2021-01-21 07:43] VITALS: BP 120/67; PULSE 70; RESP 18; TEMP 36.2; O2SAT 100
--- NOTE | 2021-01-21 08:05 | PC.NURSE ---
Consult with pt., mother reports she has pain with nursing on right breast and is currently only putting infant to left breast. Mother is supplementing as much as infant desires after all feedings due to ineffective feeding and pumping without difficulties or discomfort for 15-20 minutes. Mother is able to independently latch to left breast with appropriate positioning/alignment. Infant is eager to latch with short bursts of suckling followed with long pausing. She is feeding as required and waking to feed if needed. Infant has a few effective feedings in the past 24 hours, and is currently meeting outcomes for weight, output, jaundice and feeding frequencies. is more awake and eager to feed today. Infant continues to require supplementation for ineffective feeding. Mother continues to pump without difficulties or discomfort after all feedings due to ineffective feeding. Mother states she feels confident to continue current feeding plan at home. Mother has her own double electric pump for home use. Discussed increasing supplementation as infant requires to satisfactions. Reviewed paced feeding and suggested to stop when is satisfied, as long as is having required output. With increased supplementation may not want to feed for 4 hours. Mother will continue to pump on infant feeding schedule and will increase session to 20 minutes if pumping every 4 hours. Reviewed once mother?s milk is established and infant is effectively feeding, may have increased intake with nursing. If is effective feeding with long draws and frequent swallowing noted, may be ready to decrease/discontinue supplementation. Advised not to discontinue supplement until ICP, Follow-Up RN or LC has a pre/post weighted evaluation of infant feeding. Discussed nipple shield weaning techniques Reviewed transition to breast milk, signs of adequate intake, and engorgement/relief. Instructed to call ICP if intake/output less than required. Reviewed regular medications mother is taking. Information provided per [facility]. Reviewed community resources on the [employer] website and in the Mom/Baby guide. Information on outpatient services provided. Mother has no further questions at this time. Requested mother call out next feeding for observation.
--- NOTE | 2021-01-21 09:30 | PC.NURSE ---
Addendum entered by Brisa Gallegos RN 01/21/21 12:58: has a possible tight tongue, she is able to thrust tongue to gum ridge not past. Original Note: Mother called out for assist with feeding. Infant is able to freely thrust tongue past gum ridge and flange both lips. Right nipple is bruised with scabbing noted. Left nipple has a small reddened area, mother reports no discomfort to left. Skin is intact on both nipples, no redness and bruising noted. Nipple care reviewed of lanolin after feedings, warm compresses as needed, gel pads provided and reviewed care and cleaning. Reviewed feeding cues, frequencies, duration of feedings, feeding elimination flow sheet, and signs of adequate intake. Demonstrated stimulation techniques to wake infant for feeding. Assisted with infant to breast. Reviewed positioning/alignment in cross cradle, holding breast in ?U? hold and guided asymmetrical latch on. Reviewed rational for each. able to latch correctly within a few attempts to left breast. nursed eagerly with steady draws and occasional swallowing noted, some pausing noted. Reviewed signs of a correct latch, effective nursing and suck swallow ratio. Suggested mother stimulate while feeding to increase stimulate, increase intake and to assist with maintaining deep latch. would slip to shallow latch causing tenderness. Demonstrated how to adjust latch more deeply while feeding if needed. Mother reports she can feel the difference in latch with no/less tenderness. Mother will continue to supplement after all feedings and will wait until right nipple is healed before returning infant to right breast.
--- NOTE | 2021-01-21 11:45 | PC.NURSE ---
Self care and infant care discharge instructions given including follow up visit date and time. Mother verbalized understanding. No questions or concerns voiced. Very pleasant and cooperative. FOB at side.
[2021-01-22 11:53] VITALS: BP 132/81; PULSE 75; RESP 16; TEMP 37; O2SAT 100
== END 2021-01-21 12:01 | disposition home or self-care (01) | DRG 540 ==
LOC: ANHLDR 01-18 10:04 → ANHOB2 01-18 17:48
PROVIDERS: Admitting Provider Obstetrics & Gynecology; Visit Provider Obstetrics & Gynecology
PROC: 10D00Z1 Extraction of Products of Conception, Low, Open Approach (ICD-10-PCS; CPT 59514; principal; 2021-01-18 13:30)
DX: O99.284 Endocrine, nutritional and metabolic diseases complicating childbirth (principal); E72.12 Methylenetetrahydrofolate reductase deficiency; E28.2 Polycystic ovarian syndrome; O98.52 Other viral diseases complicating childbirth; B00.9 Herpesviral infection, unspecified; O99.824 Streptococcus B carrier state complicating childbirth; O99.334 Smoking (tobacco) complicating childbirth; F17.210 Nicotine dependence, cigarettes, uncomplicated; O33.9 Maternal care for disproportion, unspecified; O76 Abnormality in fetal heart rate and rhythm complicating labor and delivery; Z3A.40 40 weeks gestation of pregnancy; Z37.0 Single live birth; O62.2 Other uterine inertia; O36.8330 Maternal care for abnormalities of the fetal heart rate or rhythm, third trimester, not applicable or unspecified
CPT/HCPCS: 36415; 80307; 85025; 85461; 86592; 86850; 86900; 86901; 88307; 90384; A9270; J0131; J0290; J1885; J2175; J2274; J2370; J2405; J2590; J2790; J2795; J3010; J7120

== ENCOUNTER 2024-04-13 12:49 | Outpatient (CLI) | payer OTHER, SELFPAY ==
[2024-04-13 13:09] LABS: Hematocrit 36.4 % (37.0-47.0); Hemoglobin 12.6 g/dL (12.0-15.0); Mean Corpuscular HGB Conc 34.6 g/dl (32-36); Mean Corpuscular Hemoglobin 32.4 pg (26-34); Mean Corpuscular Volume 93.6 fl (80-100); Mean Platelet Volume 8.8 fl (7.4-10.4); Platelet Count Result 277 k/mm3 (150-375); Red Blood Count 3.89 M/mm3 (4.2-5.4); Red Cell Distribution Width 13.3 % (11.5-14.5); White Blood Count 10.9 K/mm3 (4.5-10.0)
[2024-04-13 14:09] LABS: Rapid Plasma Reagin Non-Reactive (NonReactive)
== END 2024-04-13 12:50 | disposition home or self-care (01) ==
LOC: ANHLAB 12:53
PROVIDERS: PCP Emergency Medicine; Visit Provider Obstetrics & Gynecology
DX: Z01.812 Encounter for preprocedural laboratory examination (principal)
CPT/HCPCS: 36415; 85027; 86592; 86850; 86880; 86900; 86901; 86902

== ENCOUNTER 2024-04-14 00:45 | Inpatient (IN) | payer OTHER, SELFPAY ==
[2024-04-14] VITALS (55 sets, daily range): BP systolic 75–144; BP diastolic 33–116; PULSE 51–293; RESP 12–20; TEMP 36.4–36.7; O2SAT 98–100; BMI 38.7
--- NOTE | 2024-04-14 02:20 | P.PNAN_ITS ---
Anes - Eval Pre Procedure Procedure: Operation Date: 04/14/24 12:00 Proposed Procedures p Repeat Section - Jole Mendosa MD Date/Time: 04/14/24 02:20 Surgeon: Rishi Mendosa Preop Diagnosis: Previous c section Pre Op Diagnosis: C/S - contractions Patient Data Age: 23 Gender: F Height: Weight: Last Vital Signs Pulse Ox 100 04/14/24 02:17 Allergies Allergy/AdvReac Type Severity Reaction Status Date / Time sulfamethoxazole (From Allergy Rash Verified 07/24/20 17:05 Bactrim) trimethoprim (From Bactrim) Allergy Rash Verified 07/24/20 17:05 morphine AdvReac Nausea and Verified 03/29/24 12:39 Vomiting Home Medications ?Medication ?Instructions ?Recorded ?Confirmed ?Type vit no.95-ferrous 1 tablet PO DAILY 01/16/21 01/17/21 History fumarate 28 mg-folic acid 800 mcg tablet () acyclovir 800 mg tablet 800 mg PO DAILY 01/17/21 01/17/21 History bupropion HCl 150 mg tablet,12 hr 150 mg PO DAILY 01/17/21 01/17/21 History sustained-release folic acid 1 mg tablet 1 mg PO DAILY 01/17/21 01/17/21 History metformin 500 mg tablet 250 mg PO DAILY 01/17/21 01/17/21 History hydrocodone 5 mg-acetaminophen 325 1 tablet PO Q6H PRN breakthrough 01/19/21 Rx mg tablet pain #30 tabs ibuprofen 600 mg tablet 600 mg PO Q6H #90 tabs 01/19/21 Rx polysaccharide iron complex 150 mg 150 mg PO BIDWM #120 caps 01/19/21 Rx iron capsule Patient hx anesthesia problems: none Family hx anesthesia problems: none Results Review: All pre-operative results and documents have been reviewed as part of the pre- operative evaluation. 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 GBS (group B Streptococcus carrier), +RV culture, currently Surgical History Surgical History Delivery by section Hx of tonsillectomy History of appendectomy Family History Family History (Updated 03/29/24 @ 12:42 by Oscar Huerta RN) Grandparent Breast cancer Grandparent Heart disease Grandparent Bone cancer Social History Social History Smoking packs per day: 0.25 Smoking cigarettes per day: 5.0 Years smoked: 4 Smoking pack-years: 1.00 Smoking status: Current every day smoker Tobacco type: cigarettes Second hand tobacco smoke exposure: Yes Alcohol intake: never Substance use: current Substance use type: marijuana Living arrangements: with family Occupation/Education: unemployed Gender identity (if verbalized by the patient): Female Sexual Orientation (if Verbalized by the Patient): Straight or Heterosexual Spiritual care concerns: No Agree to blood products: Yes Exam Day of Procedure 04/14/24 02:20 Patient weight: obese Airway: Mallampati scale (poor dentition ) class II
[2024-04-14] MEDS: ACETAMINOPHEN 500 MG TABLET 1000 MG PO (02:30)
--- NOTE | 2024-04-14 02:37 | PM.IMHP ---
H&P: HPI History of Present Illness Date/Time: 04/14/24 02:37 Chief Complaint: Labor at term Narrative: 23-year-old 2 para 1 whose last menstrual period was 07/10/2023, EDC is 04/17/2024, presents at 39 weeks gestation the splint tedious labor. She was actually scheduled in the next few hours for repeat however she is admitted this in active labor will undergo section this min reviewed in great detail her course had been unremarkable and negative group B strep and she received RhoGAM 28 weeks Review of Systems Review of Systems: All systems reviewed & are unremarkable except as noted in HPI and below PMFSH Past Medical History Medical History Anemia Chronic idiopathic constipation PCOS (polycystic ovarian syndrome) Candidiasis Chlamydia Hx: UTI (urinary tract infection) Bipolar 1 disorder Rh negative state in antepartum period HSV (herpes simplex virus) anogenital infection IBS (irritable bowel syndrome) MDD (major depressive disorder) Compound heterozygous MTHFR mutation [id number] GBS (group B Streptococcus carrier), +RV culture, currently Surgical History Surgical History Delivery by section Hx of tonsillectomy History of appendectomy Family History Family History Grandparent Breast cancer Grandparent Heart disease Grandparent Bone cancer Social History Social History Smoking packs per day: 0.25 Smoking cigarettes per day: 5.0 Years smoked: 4 Smoking pack-years: 1.00 Smoking status: Current every day smoker Tobacco type: cigarettes Second hand tobacco smoke exposure: Yes Alcohol intake: never Substance use: current Substance use type: marijuana Living arrangements: with family Occupation/Education: unemployed Gender identity (if verbalized by the patient): Female Sexual Orientation (if Verbalized by the Patient): Straight or Heterosexual Spiritual care concerns: No Agree to blood products: Yes Meds Home Medications and Allergies Home Medications ?Medication ?Instructions ?Recorded ?Confirmed ?Type vit no.95-ferrous 1 tablet PO DAILY 01/16/21 01/17/21 History fumarate 28 mg-folic acid 800 mcg tablet () acyclovir 800 mg tablet 800 mg PO DAILY 01/17/21 01/17/21 History bupropion HCl 150 mg tablet,12 hr 150 mg PO DAILY 01/17/21 01/17/21 History sustained-release folic acid 1 mg tablet 1 mg PO DAILY 01/17/21 01/17/21 History metformin 500 mg tablet 250 mg PO DAILY 01/17/21 01/17/21 History hydrocodone 5 mg-acetaminophen 325 1 tablet PO Q6H PRN breakthrough 01/19/21 Rx mg tablet pain #30 tabs ibuprofen 600 mg tablet 600 mg PO Q6H #90 tabs 01/19/21 Rx polysaccharide iron complex 150 mg 150 mg PO BIDWM #120 caps 01/19/21 Rx iron capsule Allergies Allergy/AdvReac Type Severity Reaction Status Date / Time sulfamethoxazole (From Allergy Rash Verified 07/24/20 17:05 Bactrim) trimethoprim (From Bactrim) Allergy Rash Verified 07/24/20 17:05 morphine AdvReac Nausea and Verified 03/29/24 12:39 Vomiting Vital Signs Vital Signs - 24 hr 04/14/24 02:12 04/14/24 02:17 Pulse Oximetry 100 100 Exam Const: General: cooperative, healthy appearing, comfortable and overweight Orientation/consciousness: oriented to person, oriented to place and oriented to time HENMT: Head: normal to inspection Resp: Effort & Inspection: normal respiratory effort Cardio: Rate: regular rate Rhythm: regular rhythm Heart sounds: S1 normal heart sound present and S2 normal heart sound present GI: Inspection: normal to inspection ( gravid soft uterus) : External Female Exam: normal external appearance Speculum Exam - Vagina: normal appearance of the vagina Speculum Exam - Cervix: normal appearance of the cervix ( cervix now to 50% effaced. FHTs reassuring) Assessment and Plan Assessment and plan (1) Term : Code(s): Z34.90 - Encounter for supervision of normal , unspecified, unspecified trimester Status: Acute (2) Active labor: Status: Acute (3) Previous section: Code(s): Z98.891 - History of uterine scar from previous surgery Status: Acute Plan proceed with repeat low-transverse section
--- NOTE | 2024-04-14 02:37 | LDADM ---
This patient, Albina Valencia, was admitted to Labor/Delivery/Recovery 119 on 04/14/24 at 00:45. Plans for labor, pain management and were discussed with patient. Patient/family oriented to hospital policies and general routines including ID bracelet, bed and alarms, visiting hours, pain management, procedures, bathroom and other care routines, personal items, smoking policy, room service/diet and guest tray routines, infant security routines, and visiting hours. Patient/Family are encouraged to report perceived risks to care and to ask questions if they do not understand what they are told or what they should do. See OBIX for further documentation.
--- NOTE | 2024-04-14 02:41 | WPDHPUPDATE1 ---
History and Physical Update Update Date/Time: 04/14/24 02:41 History and Physical has been reviewed, including an updated exam of the patient. There are NO changes in the patient's condition. Risks, benefits, and alternatives have been discussed and questions answered. Patient agrees to proceed with procedure.
[2024-04-14] MEDS: FAMOTIDINE 20 MG/2 ML VIAL IV PUSH (02:49)
[2024-04-14] MEDS: ONDANSETRON INJ 4 MG/2 ML VIAL IV PUSH (02:49)
[2024-04-14] MEDS: [UNRECOGNIZED DRUG - REMARK] XX (03:01)
[2024-04-14 03:29] LABS: HIV 1/2 Ab P24 Ag Result Negative (Negative)
--- NOTE | 2024-04-14 03:55 | W.PM.OBCSD ---
OB - Delivery Note Procedure Delivery date: 04/14/24 Pre-op diagnosis: Previous Delivery Post-op Diagnosis: Same Induction method: None Delivery monitor: External FHT and External Uterine Prior to decision for section, ACOG/SMFM labor guidelines were considered and discussed with the patient and staff. Decision made to proceed with the section.: Yes Procedure Performed: Repeat Surgeon: Joel Mendosa MD Anesthesia type: Spinal Description of Procedure/Findings: Patient was admitted in active labor at 39 weeks gestation. She was actually scheduled for repeat a few hours later. She underwent informed consent. She has taken the back prepped and draped in normal sterile fashion placed in the supine position. Under excellent spinal anesthetic the abdomen was entered in a Pfannenstiel fashion progressed through layers to the fascia. Fascia incised in midline carried in upward outward fashion bilaterally. Underlying muscles sharply dissected. Parietal perineum awake a clamps and by sharp dissection carried superiorly and inferiorly to the dome of the bladder. Bladder blade placed bladder flap formed. Bladder blade returned. A low transverse incision made the head delivered in the TU position. Anterior posterior shoulder delivered spontaneously. Cord clamped x2 and cut passed off table given Apgars of 8 [id number] and 9 [id number]. Cord blood was drawn. Placenta delivered intact manually. Uterus delivered from the abdomen wrapped in a moist towel. After assuring no membranes or debris remained in the uterus, the uterus closed with continuous running locking 0 Vicryl from lateral edge to lateral edge. This was followed by 2nd imbricating running locking 0 Vicryl from lateral edge to lateral edge hemostasis was assured. Ovaries and tubes review reviewed and noted be within normal limits. Uterus returned the abdomen and the hysterotomy incision inspected 1 last time. Laps removed and accounted for the fascia closed with continuous running 0 Vicryl from lateral edge to lateral edge. Patient went to recovery in satisfactory condition. All sponge, needle, instrument counts were correct. There were no immediate complications Estimated Blood Loss: 900 Drains: No Packing: No Pathology: None sent Complications: No immediate complications Condition: Stable Disposition: PACU [place] Baby Date of : 04/14/24 Time of : 03:27 Gestational Age by Date: 38 gender: Male Weight (pounds): 7 Weight (ounces): 13 presentation: vertex position: Right Occiput Anterior Placenta delivery description: Manual Removal Cord Vessel Description: 3 Vessels score one minute: 8 score five minutes: 9
--- NOTE | 2024-04-14 04:00 | PM.DS ---
DS: Admitting Diagnosis Discharge Date 04/15/24 Admitting Diagnosis term /previous section /active labor DS: Discharge Diagnosis Discharge Diagnosis (1) Previous section: Code(s): Z98.891 - History of uterine scar from previous surgery Status: Acute (2) Active labor: Status: Acute (3) Term : Code(s): Z34.90 - Encounter for supervision of normal , unspecified, unspecified trimester Status: Acute DS: Summary Hospital Course Reason for hospitalization: patient was admitted early a.m. 04/14/2024 in active labor. She was scheduled for section 5hours later but underwent immediate low-transverse section Hospital Course: the patient's hospital course unremarkable. She remained afebrile she was up, voiding without difficulty, eating regular diet, ambulating, and generally was without complaints Time Spent with Patient Time attestation: Total time spent providing and/or coordinating discharge services: Exam Const: General: cooperative, healthy appearing and comfortable Nutritional Appearance: average body habitus Orientation/consciousness: oriented to person, oriented to place and oriented to time HENMT: Head: normal to inspection Resp: Effort & Inspection: normal respiratory effort Cardio: Rate: regular rate Rhythm: regular rhythm Heart sounds: S1 normal heart sound present and S2 normal heart sound present GI: Inspection: normal to inspection ( fundus firm below the umbilicus) and incision ( wound is clean dry and intact) DS: Data Data Completed and Pending Labs on day of discharge: Labs from last 24 hours 04/14/24 02:33 HIV 1&2 Ab/P24 Ag 4thGn Negative Discharge Plan Discharge Attending physician on discharge: Joel Moy Discharging Clinician: Joel Moy Patient Disposition: Home, Self-Care Activity: may shower, no straining, no driving and pelvic rest Diet: heart healthy Wound Care Instructions: follow printed instructions Patient Instructions: Antibiotic Form Patient Language: Chinese Stand Alone Forms: General Discharge Information Follow-up/Referrals: Joel Moy MD [Physician] - Discharge Medications: New hydrocodone-acetaminophen 5-325 mg tablet 1 tablet PO Q4H PRN (Reason: pain) Qty: 20 0RF Continued PNV cmb#95-ferrous fumarate-FA [] 28 mg iron- 800 mcg Tablet 1 tablet PO DAILY acyclovir 800 mg tablet 800 mg PO DAILY metformin 500 mg tablet 250 mg PO DAILY bupropion HCl 150 mg tablet sustained-release 12 hr 150 mg PO DAILY folic acid 1 mg tablet 1 mg PO DAILY hydrocodone-acetaminophen 5-325 mg Tablet 1 tablet PO Q6H PRN (Reason: breakthrough pain) Qty: 30 0RF polysaccharide iron complex 150 mg iron Capsule 150 mg PO BIDWM Qty: 120 2RF ibuprofen 600 mg Tablet 600 mg PO Q6H Qty: 90 1RF Date of admission: 04/14/24 00:45 Primary Care Provider: Karen,Ute Burrows Admitting Provider: Joel Moy Attending physician on admission: Joel Moy Condition: Stable
[2024-04-14] MEDS: OXYTOCIN 30 UNITS/NS 500 ML 30 UNITS/500 ML BAG 125 UNITS IV CONT (05:00)
[2024-04-14] MEDS: LACTATED RINGERS 1,000 ML 125 ML IV CONT (05:00)
[2024-04-14] MEDS: LIDOCAINE 5% PATCH 1 PATCH TRANSDERM (06:04)
--- NOTE | 2024-04-14 07:00 | OBPPTRN ---
Patient transferred to post room # 283 via stretcher. Support person present. Oriented to unit, room, information board, rooming in, admission packet and security measures. Patient verbalizes understanding.
--- NOTE | 2024-04-14 08:10 | PC.NURSE ---
Mother had called out for assistance with . Introductions were made, then consulted with patient to assess needs related to . Mother had needed assistance with positioning, RN helped mother bring baby closer to her for a deeper latch, baby latched optimally to her right breast in the cradle position. Mother voiced understanding of information and will call if there is a request for assistance. Reported to the Primary RN.
[2024-04-14] MEDS: SIMETHICONE 80 MG TAB.CHEW PO ×2 (09:07→15:05)
[2024-04-14] MEDS: POLYSACCHARIDE IRON COMPLEX 150 MG CAPSULE PO (09:07)
[2024-04-14] MEDS: DOCUSATE SODIUM 100 MG CAPSULE PO (09:07)
[2024-04-14] MEDS: MULTIVIT/MIN/PREN/FOL AC/IRON TABLET 1 TAB PO (09:07)
[2024-04-14] MEDS: DEXTROSE 5%/0.45% SOD CHL 1,000 ML 125 ML IV CONT (09:08)
[2024-04-14] MEDS: KETOROLAC 15 MG/ML VIAL (*BKC) IV PUSH ×3 (09:39→22:00)
[2024-04-14] MEDS: ACETAMINOPHEN 325 MG TABLET 650 MG PO ×3 (09:39→22:00)
--- NOTE | 2024-04-14 16:29 | PCCCNOTE ---
Addendum entered by NELI Vogel 04/15/24 11:21: [facility] [phone], who reports will follow up with pt. once she is discharged home. She will offer services to pt. and family. No report/investigation being completed by DCFS. ALL Walker aware. Original Note: Recvd referral due to pt's scoring high on OB Substance Abuse screening. Pt. admits to using THC during to assist with appetite and sleep. ALL [place] reports no plan for any baby drug screens. Pt's FOB [employer] at bedside. Pt. reports will live in [place], with F[facility] [employer], pt's mother Penny, father, and pt's siblings. Pt. 3 year old daughter Jessica also lives at home. Pt. reports has support and states has baby supplies. Pt. reports established with both WIC and [employer] [place]. Pt. reports had a DCFS case in 2020, due to no heat in the home, but reports it was unfounded. resources provided. ALL Walker aware of visit. DCFS report made online #[id number]. No further Care Coordination needs indicated.
--- NOTE | 2024-04-14 17:42 | PC.NURSE ---
1245. Observed mother latching to the left breast in cross cradle position. Infant was able to maintain an appropriate latch. Mother declines nipple pain/discomfort throughout feeding. Encouraged mother to keep awake and nursing at the breast for 15 minutes. Mother taught to listen for infant swallowing during feedings. Reviewed using the blue feeding sheet to record time and duration of feeding. Mother voiced understanding of the education shared, to call for assistance if the does not latch or if there is discomfort with . name/number on communication board. Reported to the Primary RN.?
[2024-04-15] MEDS: ACETAMINOPHEN 325 MG TABLET 650 MG PO ×2 (04:43→10:25)
[2024-04-15] MEDS: KETOROLAC 15 MG/ML VIAL (*BKC) IV PUSH (04:43)
[2024-04-15 06:05] LABS: Basophils Percent Auto 0.3 % (0.2-1.2); Eosinophils Absolute Auto 0.1 K/mm3 (0-0.3); Eosinophils Percent Auto 0.7 % (0-4.4); Hemoglobin 9.7 g/dL (12.0-15.0); Immature Granulocyte Absolute 0.08 K/mm3 (0.00-0.031); Immature Granulocyte Percent A 0.6 % (0-0.5); Lymphocytes Absolute Auto 3.25 K/mm3 (0.9-3.2); Lymphocytes Percent Auto 24.9 % (18.3-44.2); Mean Corpuscular HGB Conc 33.4 g/dl (32-36); Mean Corpuscular Hemoglobin 31.7 pg (26-34); Mean Corpuscular Volume 94.8 fl (80-100); Mean Platelet Volume 9.2 fl (7.4-10.4); Monocytes Absolute Auto 0.9 K/mm3 (0.1-0.6); Monocytes Percent Auto 6.8 % (2.6-8.5); Neutrophils Absolute Auto 8.7 K/mm3 (1.3-6.7); Neutrophils Percent Auto 66.7 % (45.5-73.1); Platelet Count Result 232 k/mm3 (150-375); Red Blood Count 3.06 M/mm3 (4.2-5.4); Red Cell Distribution Width 13.3 % (11.5-14.5)
--- NOTE | 2024-04-15 06:47 | P.PNOB_ITS ---
OB - PN: Subj Subjective Date/time seen: 04/15/24 06:47 Patient comments: no complaints, pain well controlled and tolerating diet [place] baby status: doing well OB - PN: Obj Data Labs 04/15/24 04:21 Labs: Laboratory Results - last 24 hr 04/15/24 04:21 WBC 13.0 H RBC 3.06 L Hgb 9.7 L Hct 29.0 L MCV 94.8 MCH 31.7 MCHC 33.4 RDW 13.3 Plt Count 232 MPV 9.2 Immature Gran % (Auto) 0.6 H Neut % (Auto) 66.7 Lymph % (Auto) 24.9 [place] % (Auto) 6.8 Eos % (Auto) 0.7 Baso % (Auto) 0.3 Lymph # (Auto) 3.25 H [place] # (Auto) 0.9 H Eos # (Auto) 0.1 Baso # (Auto) 0.0 Abs Immat Gran (auto) 0.08 H Absolute Neuts (auto) 8.7 H Absolute Nucleated RBC 0.000 Nucleated RBC % 0.0 OB - PN A/P Assessment and Plan (1) Previous section: Code(s): Z98.891 - History of uterine scar from previous surgery Status: Acute Plan routine Time Spent With Patient Time: Total time spent is greater than 50% in coordination of care (as documented) at patient's floor/unit and/or counseling patient: Review of Systems 2 Review of Systems: All systems reviewed & are unremarkable except as noted in HPI and below Exam 2 Const: General: cooperative, healthy appearing and comfortable Nutritional Appearance: overweight Orientation/consciousness: oriented to person, oriented to place and oriented to time HENMT: Head: normal to inspection Resp: Effort & Inspection: normal respiratory effort Cardio: Rate: regular rate Rhythm: regular rhythm Heart sounds: S1 normal heart sound present and S2 normal heart sound present GI: Inspection: normal to inspection and incision (cdi)
[2024-04-15 07:45] VITALS: BP 116/51; PULSE 64; RESP 18; TEMP 36.9; O2SAT 100
[2024-04-15] MEDS: HYDROcodone/acetaminophen (*CRX) 5-325 MG TABLET 1 TAB PO (08:32)
[2024-04-15] MEDS: DOCUSATE SODIUM 100 MG CAPSULE PO (08:33)
[2024-04-15] MEDS: SIMETHICONE 80 MG TAB.CHEW PO ×2 (08:33→12:11)
[2024-04-15] MEDS: POLYSACCHARIDE IRON COMPLEX 150 MG CAPSULE PO (08:33)
[2024-04-15] MEDS: IBUPROFEN 600 MG TABLET PO (10:25)
[2024-04-15] MEDS: RHO(D) IMMUNE GLOBULIN 300 MCG/2 ML SYRINGE IM (12:11)
--- NOTE | 2024-04-15 12:40 | PC.NURSE ---
Consulted with mother concerning needs and she shared her ability to independently latch infant optimally without pain. had a frenulectomy yesterday and the latch has improved. Mother is feeding appropriately for growth of and understands stimulating to eat if needed. Infant has had appropriate feedings in the last 24 hours meets the outcomes for weight, output, blood sugar and jaundice at this time. Reinforced understanding of milk production, transition of milk, signs of adequate intake, transition of stool, prevention/relief of engorgement, plugged ducts, mastitis, responsive watching for feeding cues, the different methods of stimulating to breastfeed 1-3 hours after the start of the last feeding, community resources, and when to call a provider using the resource of the feeding sheet along with the mom and baby guide. [facility] referral faxed and mother has a breast pump at home. Mother had concerns about some spots on her right nipple she thought were blackheads. It appears to be a few moles or skin tags on the areola. It doesn't appear red or rash like or to have any open areas or discharge. The patient was advised that if there is any change in the spots to call her doctor and have them checked. Mother voiced understanding of the information shared, is confident to continue effectively her infant at home, when to call for assistance, denies any additional assistance or education at this time. Reported to the Primary RN.
[2024-04-18 10:36] VITALS: BP 138/77; PULSE 71; RESP 18; TEMP 37.4; O2SAT 100
== END 2024-04-15 13:13 | disposition home or self-care (01) | DRG 540 ==
LOC: ANHLDR 02:11 → ANHOB2 06:53
PROVIDERS: Admitting Provider Obstetrics & Gynecology; PCP Emergency Medicine; Visit Provider Obstetrics & Gynecology
PROC: 10D00Z1 Extraction of Products of Conception, Low, Open Approach (ICD-10-PCS; CPT 59514; principal; 2024-04-14 12:00)
DX: O34.211 Maternal care for low transverse scar from previous cesarean delivery (principal); Z37.0 Single live birth; Z3A.39 39 weeks gestation of pregnancy
CPT/HCPCS: 36415; 85025; 85461; 86703; 86850; 86900; 86901; 90384; A9270; G0432; J1200; J1885; J2274; J2371; J2405; J2590; J2790; J7120

== ENCOUNTER 2024-04-20 21:16 | Observation (INO) | payer OTHER, SELFPAY ==
[2024-04-20 21:42] VITALS: BP 140/79; PULSE 82
[2024-04-20 21:55] VITALS: BP 136/76; PULSE 77
[2024-04-20 21:59] VITALS: BMI 35.9
--- NOTE | 2024-04-20 21:59 | OBADM ---
This patient, Albina Valencia, admitted to the OB room [facility] for observation. Patient/family oriented to hospital policies and general routines including ID bracelet, bed and alarms, visiting hours, pain management, procedures, bathroom and other care routines, personal items, smoking policy, room service/diet, and visiting hours. Patient/Family are encouraged to report perceived risks to care and to ask questions if they do not understand what they are told or what they should do.
[2024-04-20 22:00] VITALS: BP 131/74; PULSE 80
[2024-04-20 22:07] LABS: Basophils Percent Auto 0.5 % (0.2-1.2); Eosinophils Absolute Auto 0.5 K/mm3 (0-0.3); Eosinophils Percent Auto 5.5 % (0-4.4); Hematocrit 31.6 % (37.0-47.0); Hemoglobin 10.5 g/dL (12.0-15.0); Immature Granulocyte Absolute 0.05 K/mm3 (0.00-0.031); Immature Granulocyte Percent A 0.6 % (0-0.5); Lymphocytes Absolute Auto 2.81 K/mm3 (0.9-3.2); Lymphocytes Percent Auto 34.2 % (18.3-44.2); Mean Corpuscular HGB Conc 33.2 g/dl (32-36); Mean Corpuscular Hemoglobin 31.2 pg (26-34); Mean Corpuscular Volume 93.8 fl (80-100); Mean Platelet Volume 8.1 fl (7.4-10.4); Monocytes Absolute Auto 0.5 K/mm3 (0.1-0.6); Monocytes Percent Auto 6.3 % (2.6-8.5); Neutrophils Absolute Auto 4.3 K/mm3 (1.3-6.7); Neutrophils Percent Auto 52.9 % (45.5-73.1); Platelet Count Result 332 k/mm3 (150-375); Red Blood Count 3.37 M/mm3 (4.2-5.4); White Blood Count 8.2 K/mm3 (4.5-10.0)
[2024-04-20 22:14] LABS: Add Urine Microscopic? YES; Appearance Urine Cloudy (Clear); Bacteria Urine Rare /hpf; Bilirubin Urine Negative (Negative); Blood Urine 3+ (Negative); Color Urine Yellow (Yellow); Glucose Urine UA Negative (Negative); Ketones Urine 2+ mg/dL (Negative); Leukocyte Esterase Ur 1+ LEU/UL (Negative); Nitrate Urine Negative (Negative); Non Pathogenic Casts 0-2; Protein Urine Trace mg/dL (Negative); RBC Urine 21-50 /hpf (0-2); Squamous Epithelial Cell Urine Moderate /hpf (Few)
[2024-04-20 22:25] LABS: Alanine Aminotransferase 12 U/L (6-35); Albumin Level 3.3 g/dL (3.5-5.1); Alkaline Phosphatase 93 U/L (38-126); Anion Gap 3 mmol/L (4-12); Aspartate Amino Transferase 21 U/L (14-36); Bilirubin,Total 0.4 mg/dL (0.2-1.3); Blood Urea Nitrogen 8 mg/dL (7-17); Calcium 8.5 mg/dL (8.4-10.2); Carbon Dioxide 25 mmol/L (22-30); Chloride 111 mmol/L (98-107); Estimated CRCL calculation 137 ml/min; Estimated Glomerular Filt Rate > 60; Glucose 87 mg/dL (65-110); Potassium 3.3 mmol/L (3.4-5.0); Sodium 139 mmol/L (137-145); Uric Acid 5.7 mg/dL (2.5-7.5)
--- NOTE | 2024-04-20 22:41 | PC.NURSE ---
Called Dr. Galicia with pt labs and BPs. Dr. Galicia stated pt okay to go home and follow-up in office on scheduled visit.
[2024-04-20 23:19] LABS: Creatinine Urine 166.6 mg/dL; Total Protein Urine Random 12 mg/dL; Ur Ttl Prot Creatinine Ratio 0.07 mg/mg (0-0.20)
--- NOTE | 2024-05-16 11:25 | PM.OBTRLD ---
OB - Triage/Final Diagnosis Visit Information Comments/Additional reasons for admission: I have assessed the risk for this patient, Albina Valencia, and determined that she would benefit from observation care. Evaluation Laboratory results: Laboratory Tests 04/20/24 21:25 WBC 8.2 RBC 3.37 L Hgb 10.5 L Hct 31.6 L MCV 93.8 MCH 31.2 MCHC 33.2 RDW 13.0 Plt Count 332 MPV 8.1 Immature Gran % (Auto) 0.6 H Neut % (Auto) 52.9 Lymph % (Auto) 34.2 [place] % (Auto) 6.3 Eos % (Auto) 5.5 H Baso % (Auto) 0.5 Lymph # (Auto) 2.81 [place] # (Auto) 0.5 Eos # (Auto) 0.5 H Baso # (Auto) 0.0 Abs Immat Gran (auto) 0.05 H Absolute Neuts (auto) 4.3 Absolute Nucleated RBC 0.000 Nucleated RBC % 0.0 Sodium 139 Potassium 3.3 L Chloride 111 H Carbon Dioxide 25 Anion Gap 3 L BUN 8 Creatinine 0.60 L Estim Creat Clear Calc 137 Estimated GFR > 60 Glucose 87 Uric Acid 5.7 Calcium 8.5 Total Bilirubin 0.4 AST 21 ALT 12 Alkaline Phosphatase 93 Total Protein 6.0 L Albumin 3.3 L Urine Color Yellow Urine Appearance Cloudy H Urine pH 7.0 Ur Specific [place] 1.020 Urine Protein Trace Urine Glucose (UA) Negative Urine Ketones 2+ H Ur Blood (Man) 3+ H Urine Nitrate Negative Urine Bilirubin Negative Urine Urobilinogen 1.0 Leukocyte Esterase Rfl 1+ H Urine RBC 21-50 H Urine WBC 6-10 H Ur Squamous Epith Cells Moderate Urine Bacteria Rare Urine Casts 0-2 U Random Total Protein 12 Urine Creatinine 166.6 Protein/Creat Ratio 2 0.07 Final Diagnosis (1) hypertension: Code(s): O16.5 - Unspecified maternal hypertension, complicating the puerperium Status: Acute
== END 2024-04-20 22:54 | disposition home or self-care (01) ==
PROVIDERS: Obstetrics & Gynecology; Admitting Provider Obstetrics & Gynecology; PCP Emergency Medicine; Visit Provider Obstetrics & Gynecology
DX: O16.5 Unspecified maternal hypertension, complicating the puerperium (principal)
CPT/HCPCS: 36415; 80053; 81001; 82570; 84156; 84550; 85025; 87086; G0378; G0379